=== PATIENT | male | born 1960 | race Caucasian/White ===

== ENCOUNTER 2021-10-03 11:00 | Emergency (ER) | payer BC, SELFPAY ==
[2021-10-03 11:08] VITALS: BP 128/76; PULSE 78; RESP 18; TEMP 36.4; O2SAT 98
--- NOTE | 2021-10-03 11:53 | ED.LOWEXIN ---
HPI - Extremity Injury (Lower) General Chief Complaint: Extremity Problem,Nontraumatic Stated Complaint: Ankle Pain Time Seen by Provider: 10/03/21 11:53 Source: patient Mode of arrival: ambulatory Limitations: no limitations History of Present Illness HPI Narrative: 61-year-old male presented for complaint of right ankle pain for about 2 days. States it started when he was sitting watching TV, he stood up and felt pain. Denies hearing a pop or he denies known injury, but states he has been trying to walk and exercise more for weight loss. Endorses a history of gout. Denies redness or swelling to the ankle. He has taken ibuprofen for pain. Denies numbness, tingling, weakness to the foot. He has been using a soft ankle splint. Related Data Home Medications Medication Instructions Recorded Confirmed alprazolam 0.5 mg tablet tablet 10/03/21 atorvastatin 20 mg tablet tablet 10/03/21 mometasone 100 mcg/actuation HFA inh inhalation 10/03/21 aerosol inhaler (Asmanex HFA) sertraline 100 mg tablet tablet 10/03/21 Allergies Allergy/AdvReac Type Severity Reaction Status Date / Time No Known Allergies Allergy Verified 10/03/21 11:18 Review of Systems Review of Systems: CONSTITUTIONAL: Denies body aches, fever, chills CARDIOVASCULAR: Denies chest pain, palpitations. RESPIRATORY: Denies dyspnea. GASTROINTESTINAL: Denies abdominal pain, nausea, vomiting, or diarrhea. SKIN: Denies rash, itching, or wounds. MUSCULOSKELETAL: Denies back pain or myalgia. NEUROLOGIC: Denies headache, numbness, tingling, or weakness. All systems reviewed & are unremarkable except as noted in HPI and below PMFSH Family History Family History Other Family history of mental disorder Social History Social History Smoking status: Never smoker Alcohol intake: current Comments At time of signature, I have reviewed and agree with nursing past medical, surgical, social and family history unless otherwise noted. Please see nursing chart for further information. There is no relevant family history pertinent to the presenting complaint Exam Narrative: GENERAL: Well-appearing CHEST: Speaks in full sentences. No respiratory distress. HEART: Regular rate and rhythm. Normal and equal peripheral pulses. EXTREMITIES: Right posterior ankle tender with palpation to bilateral sides of the Achilles. No point tenderness to the Achilles. Right ankle with normal ROM, reports pain with ROM. Bilateral feet normal strength and sensation. No edema, erythema, or ecchymosis. No open wounds, skin tenting, or obvious deformity; pulse palpable and equal bilaterally, skin warm, dry, pink. Capillary refill less than 3 seconds. SKIN: Warm, dry, no rash. NEURO: Alert and oriented x3. PSYCH: Normal mood and affect Course Course Emergency Course: Patient is aware of diagnosis, understands and agrees to treatment plan. Anticipatory guidance given. Patient agrees to follow-up as directed and is aware of reasons to seek care at the emergency department. Portions of this record may have been created with voice recognition software Level of Care: Express Care Visit Vital Signs Vital signs: Reviewed MDM - Extremity Injury (Lower) MDM Narrative Medical decision making narrative: We discussed the possibility of imaging of the ankle, he can tolerate bearing weight and no injury therefore imaging deferred at this time. Advised RICE therapy and signs/symptoms to go to the ER. He states he is going on vacation in 3 days. Advised to take steroid now, and continue with RICE therapy and attempt to limit excessive walking. Pt is appropriate for outpt treatment and f/u. Differential Diagnosis Differential diagnosis: Likely ankle sprain and strain and other (gout, tendonitis) Discharge Plan Discharge Clinical Impression: Ankle sprain and strain P
== END 2021-10-03 12:12 | disposition home or self-care (01) ==
PROVIDERS: Emergency Provider Nurse Practitioner Family; PCP Family Medicine
DX: S93.401A Sprain of unspecified ligament of right ankle, initial encounter (principal); S96.911A Strain of unspecified muscle and tendon at ankle and foot level, right foot, initial encounter; X58.XXXA Exposure to other specified factors, initial encounter; E78.00 Pure hypercholesterolemia, unspecified; J45.909 Unspecified asthma, uncomplicated; M10.9 Gout, unspecified
CPT/HCPCS: 99213; G0463